=== PATIENT | male | born 1965 | race Native Hawaiian/Other Pacific Islander ===

== ENCOUNTER 2017-04-30 12:07 | Day surgery (SDC) | payer OTHER ==
[~2017-04-30 12:07] MED LIST: CIPRODEX1 ML OT; LEVE500T5; LEVE500T5 PO; LISI20TA24 PO; MEDROL DOSEPAK4 MG OR; SIMV20TA2 PO
== END 2017-04-30 17:05 | disposition home or self-care (01) ==
LOC: OR 12:07
PROC: 0DBM8ZZ Excision of Descending Colon, Via Natural or Artificial Opening Endoscopic (ICD-10-PCS; principal; 2017-04-30)
PROC: 0DBN8ZZ Excision of Sigmoid Colon, Via Natural or Artificial Opening Endoscopic (ICD-10-PCS; 2017-04-30)
PROC: 0DBP8ZZ Excision of Rectum, Via Natural or Artificial Opening Endoscopic (ICD-10-PCS; 2017-04-30)
DX: K64.8 Other hemorrhoids (principal); D12.5 Benign neoplasm of sigmoid colon; K62.1 Rectal polyp; D12.4 Benign neoplasm of descending colon; Z12.11 Encounter for screening for malignant neoplasm of colon; K92.2 Gastrointestinal hemorrhage, unspecified; Z80.0 Family history of malignant neoplasm of digestive organs
CPT/HCPCS: J3010

== ENCOUNTER 2021-01-24 16:50 | Outpatient (CLI) | payer OTHER | END 2021-01-24 20:35 | disposition home or self-care (01) | LOC: RAD 16:50 | PROVIDERS: ATTEND Registered Nurse | DX: M79.641 Pain in right hand (principal) ==